=== PATIENT | male | born 1965 | race Caucasian/White ===

== ENCOUNTER → 2017-07-04 | Outpatient (CLI) | payer BC ==
--- NOTE | 2017-07-04 10:44 | EKG ---
[facility] Measurements Intervals [place] Rate: 83 P: 37 [place]: 161 QRS: 17 QRSD: 91 T: 17 QT: 347 QTc: 386 Interpretive Statements SINUS RHYTHM No previous ECG available for comparison Electronically Signed On 07-04-17 13:39:05 MDT by Ángel Queen [email or web address]
== END ==
LOC: EKG 10:38
PROVIDERS: ATTEND Physician Assistant Medical
DX: Z01.812 Encounter for preprocedural laboratory examination (principal); Z01.810 Encounter for preprocedural cardiovascular examination; M67.461 Ganglion, right knee
CPT/HCPCS: 85014; 93005; 93010